=== PATIENT | male | born 1965 | race Caucasian/White ===

== ENCOUNTER 2017-12-01 01:26 | Emergency (ER) | payer OTHER ==
[~2017-12-01] VITALS: Ht 182.9 cm; Wt 98.4 kg
[~2017-12-01 01:26] MED LIST: AVAPRO300 MG PO; GLIMEPIRIDE2 MG PO; SIMVASTATIN20 MG PO; TRADJENTA5 MG PO
[2017-12-01] MEDS ORDERED: XARELTO15 MG (01:55)
[2017-12-01] MEDS ORDERED: ONGLYZA5 MG (01:56)
== END 2017-12-01 17:00 | disposition home or self-care (01) ==
LOC: ER 01:26
DX: S80.12XA Contusion of left lower leg, initial encounter (principal); M79.662 Pain in left lower leg; M25.48 Effusion, other site; W22.8XXA Striking against or struck by other objects, initial encounter; Y93.89 Activity, other specified; Y92.69 Other specified industrial and construction area as the place of occurrence of the external cause; Y99.8 Other external cause status

== ENCOUNTER 2017-12-07 20:07 | Emergency (ER) | payer OTHER ==
[~2017-12-07] VITALS: Ht 182.9 cm; Wt 97.5 kg
[~2017-12-07 20:07] MED LIST changes: +ONGLYZA5 MG; +XARELTO15 MG
== END 2017-12-07 21:20 | disposition home or self-care (01) ==
LOC: ER 20:07
DX: L03.116 Cellulitis of left lower limb (principal)

== ENCOUNTER 2020-07-24 18:21 | Emergency (ER) | payer OTHER ==
[~2020-07-24] VITALS: Ht 182.9 cm; Wt 95.3 kg
[2020-07-24] MEDS ORDERED: [UNRECOGNIZED DRUG - OTHER] (18:34)
[2020-07-24] MEDS ORDERED: ELIQUIS5 MG (18:35)
== END 2020-07-24 21:28 | disposition home or self-care (01) ==
LOC: ER 18:21
DX: R10.13 Epigastric pain (principal)

== ENCOUNTER 2021-04-28 18:10 | Emergency (ER) | payer OTHER ==
[~2021-04-28] VITALS: Ht 182.9 cm; Wt 97.5 kg
[~2021-04-28 18:10] MED LIST changes: +ELIQUIS5 MG; +[UNRECOGNIZED DRUG - OTHER]
[2021-04-28] MEDS ORDERED: ZESTRIL5 MG PO (18:46)
[2021-04-28] MEDS ORDERED: ULTRAM50 MG PO (21:33)
== END 2021-04-28 21:40 | disposition home or self-care (01) ==
LOC: ER 18:10
DX: M54.59 Other low back pain (principal)

== ENCOUNTER 2024-01-22 16:53 | Emergency (ER) | payer OTHER ==
[~2024-01-22] VITALS: Ht 182.9 cm; Wt 90.7 kg
[~2024-01-22 16:53] MED LIST changes: +ULTRAM50 MG PO; +ZESTRIL5 MG PO
[2024-01-22] MEDS ORDERED: GABAPENTIN300 M2 PO (17:36)
[2024-01-22] MEDS ORDERED: METFORMIN HCL500 MG (17:36)
[2024-01-22] MEDS ORDERED: ACETAMINOPHEN 500 MG GEL..CAP PO STA (19:53)
[2024-01-22 20:08] LABS: HEMATOCRIT 41.6 % (39.0-48.0); HEMOGLOBIN 14.4 g/dL (13-16.00); MEAN CELL VOLUME 86.2 fL (80.0-100.00); MEAN CORPUSCULAR HEMOGLOBIN 29.7 pg (27.00-32.0); MEAN CORPUSCULAR HGB CONC 34.5 g/dl (32.0-36.0); PLATELET COUNT 243 K/uL (150-450); RED BLOOD COUNT 4.83 M/uL (4.00-6.00); RED CELL DISTRIBUTION WIDTH 13.8 % (11.5-14.5)
[2024-01-22 20:27] LABS: CALCIUM 9.1 mg/dL (8.5-10.1); CREATININE SERUM 0.91 mg/dL (0.70-1.30); GFR 86.18; POTASSIUM 4.06 mEq/L (3.5-5.1)
[2024-01-22 20:35] LABS: INR 1.01; PROTHROMBIN TIME 10.6 SECONDS (9.0-11.5)
== END 2024-01-23 00:08 | disposition home or self-care (01) ==
LOC: ER 16:53
PROVIDERS: General Practice
DX: R51.9 Headache, unspecified (principal); E11.9 Type 2 diabetes mellitus without complications; Z79.84 Long term (current) use of oral hypoglycemic drugs